=== PATIENT | female | born 1980 | race Caucasian/White ===

== ENCOUNTER → 2017-01-29 | Outpatient (CLI) | payer OTHER ==
[~2017-01-29] MED LIST: ALL DAY ALLERGY10 MG PO; DIFLUCAN100 MG PO; ENSKYCE 28 TAB1 EACH PO; FEROSUL325 MG PO; IBU800 M1 PO; LANTUS100 U/ML SC; MOTRIN800 MG PO; NOVOLOG1 UNIT/0.0 SC; OMEPRAZOLE40 MG PO; PAROXETINE HCL40 MG PO; PERCOCET 325 MG1 TA2 PO; PERCOCET 325 MG1 TA5 PO; SYNTHROID0.088 MG PO; TYLENOL500 MG PO; VENLAFAXINE HY150 M2 PO; VITAMIN D-32000 UNI1 PO; ZYRTEC10 M1 PO
[2017-01-29 15:21] LABS: BASO % 0.2 % (0.0-1.0); EOS # 0.3 10*3/uL (0.0-0.4); EOS % 2.7 % (1.0-4.0); HEMATOCRIT 38.2 % (37.0-47.0); HEMOGLOBIN 12.1 g/dl (12.0-16.0); LYMPH # 4.6 10*3/uL (1.3-4.4); MEAN CORPUSCULAR HGB 26.6 pg (27.0-31.0); MEAN CORPUSCULAR HGB CONC 31.7 g/dl (33.0-37.0); MEAN PLATELET VOLUME 9.7 fl (9.6-12.3); MONO # 0.5 10*3/uL (0.1-1.0); MONO % 4.2 % (3.0-9.0); NEUT # 6.9 10*3/uL (2.3-7.9); NEUT % 55.3 % (47.0-73.0); PLATELET COUNT AUTOMATED 323 10*3/uL (130-400); RED BLOOD COUNT 4.55 10*6/uL (4.10-5.10); RED CELL DISTRI WIDTH 13.3 % (0-14.5); WHITE BLOOD COUNT 12.5 10*3/uL (4.8-10.8)
== END | disposition home or self-care (01) ==
LOC: LAB 13:49 → US 16:00
PROVIDERS: Obstetrics & Gynecology
DX: N92.0 Excessive and frequent menstruation with regular cycle (principal); N94.6 Dysmenorrhea, unspecified; R58 Hemorrhage, not elsewhere classified

== ENCOUNTER → 2017-02-05 | Day surgery (SDC) | payer OTHER ==
[2017-01-29 14:06] VITALS: BP 134/84
[~2017-02-05] VITALS: Ht 170.1 cm; Wt 140.6 kg
--- NOTE | ~2017-02-05 | WRIGHTHP ---
[place], [place] PATIENT HISTORY AND PHYSICAL EXAM NAME: [facility]ACK [id number] UNIT #: [id number] ROOM: DOCTOR: TRACIE DE JESUS MD BIRTHDATE: [birth year] DOS: 02/05/2017 HISTORY OF PRESENT ILLNESS: The patient is a 36-year-old white female 4, para 4, AB 0, kindly referred by Dr. Carrizales from the [facility] for evaluation for worsening hypermenorrhea, lasting for 4-7 days per month. The patient's cycles seem to be reasonably regular, but the patient states that she is having increasing clotting and cramping. The patient has also made an effort in conjunction with Dr. Carrizales's therapy to utilize the control pill for about a year, but states that she has got no significant relief. She is status post tubal ligation and status post vaginal delivery x 3 with her last delivery being a for breech at term. The patient has also been offered Mirena, but not interested. We therefore reviewed the risks and benefits, indications, potential complications and alternatives of hysteroscopy, D and C and NovaSure endometrial ablation, understanding stated and consent was signed. We also ordered an ultrasound to evaluate her pelvis as a precaution due to her BMI, but this was also normal. The patient had signed her consent and has been scheduled for 02/05/2017. PAST MEDICAL HISTORY: Reveals a history of vaginal delivery, 4 pregnancies, 4 children, 3 vaginal deliveries and a . She is also status post tubal ligation. She has history of thyroid disorder, well controlled by history and a history of depression. The patient, as I said, has had a tubal ligation. SOCIAL HISTORY: She does not smoke or drink. ALLERGIES: She states an allergy to METFORMIN, i.e. a rash. MEDICATIONS: The patient does take ____not for control, but in an effort for menstrual regulation. She takes amitriptyline 10 mg daily for anxiety, Effexor 150 mg daily for anxiety, depression; Paxil 20 mg daily for anxiety and depression, Zyrtec 10 mg p.r.n. for allergies, iron therapy 325 mg daily due to the heavy bleeding and omeprazole 40 mg daily for reflux. REVIEW OF SYSTEMS: Otherwise is stable. FAMILY HISTORY: Reveals a family history of diabetes. PHYSICAL EXAMINATION: GENERAL: Reveals a pleasant white female. VITAL SIGNS: She is 5 feet and 7 inches, 316 pounds, BMI is 49.5, blood pressure 142/88. She is in no apparent distress. She has sleep apnea, oxygen status normal. HEENT AND NECK: Grossly intact. LUNGS: Grossly intact. CARDIAC: Grossly intact. BREASTS: Grossly intact. ABDOMEN: Grossly intact. EXTREMITIES: Grossly intact. NEUROLOGIC: Grossly intact. GENITOURINARY: External genitalia, vagina, cervix normal. Most recent Pap [place], [place] PATIENT HISTORY AND PHYSICAL EXAM NAME: STEFANY BLACK UNIT #: [id number] ROOM: DOCTOR: TRACIE DE JESUS MD BIRTHDATE: [birth year] negative. Uterus is anteverted and anteflexed, normal size, configuration, nontender and mobile. The adnexa negative. RECTAL: Deferred. ASSESSMENT AND PLAN: The patient with worsening hypermenorrhea with reasonably regular cycles, worsening dysmenorrhea and worsening clotting, who is status post tubal ligation and has failed other conservative therapies, who will undergo hysteroscopy, dilation and curettage and NovaSure endometrial ablation on 02/05/2017. TRACIE DE JESUS MD CM:HISPHYS:PATIENT HISTORY AND PHYSICAL EXAMINATION [id number] TRACIE DE JESUS MD 02/01/17 0634 interface
--- NOTE | ~2017-02-05 | O ---
[place], [place] OPERATIVE NOTE NAME: STEFANY BLACK UNIT #: [id number] ROOM: DOCTOR: TRACIE COREA MD BIRTHDATE: [birth year] DOS: 02/05/2017 PREOPERATIVE DIAGNOSES: Worsening hypermenorrhea, dysmenorrhea, increased clotting in a patient who had failed conservative therapy and is status post tubal ligation. POSTOPERATIVE DIAGNOSES: Worsening hypermenorrhea, dysmenorrhea, increased clotting in a patient who had failed conservative therapy and is status post tubal ligation. PROCEDURE: Hysteroscopy, D and C and NovaSure endometrial ablation. SURGEON: Dr. Tracie Corea and Dr. Carrizales. ANESTHESIA: MAC with 2% Nesacaine local anesthetic placed in a paracervical manner at 4 and 7 o'clock respectively, 5 mL each. ESTIMATED BLOOD LOSS: Minimal. REPLACEMENTS: IV fluids and Toradol. COMPLICATIONS: There were no complications. CONDITION: The patient's condition to recovery stable. OPERATIVE SUMMARY: The patient was taken to operating room and placed in supine position, administered MAC anesthesia, placed in lithotomy position where she was prepped and draped in routine manner. The cervix was grasped, paracervical block of 2% Nesacaine was placed at 4 and 7 o'clock respectively, 5 mL each and once that was placed, we then sounded the uterus to 8.5 cm. The cervix was progressively dilated, followed by placing the hysteroscope, which revealed both cornual regions and the fundus to be normal. The body of uterus was overall normal in configuration and overall appearance as well as the lower uterine segment. The hysteroscope was removed. A thorough curettage was undertaken with a curet and stone forceps and once this was completed, the NovaSure device was placed and after achieving the appropriate depth and width and noting that the cavity was intact, the NovaSure ablation was accomplished without complication. Once that was completed, the NovaSure device was removed and repeat hysteroscopy revealed an excellent global ablation and no other abnormalities. All instrumentation was removed. Good hemostasis was noted. The patient was cleaned off, taken out of lithotomy position, awakened and transferred to recovery in satisfactory condition, stable vital signs, good hemostasis and stable sponge and instrument count. [place], [place] OPERATIVE NOTE NAME: STEFANY BLACK UNIT #: [id number] ROOM: DOCTOR: TRACIE COREA MD BIRTHDATE: [birth year] TRACIE COREA MD CM:OPRECORD:OPERATIVE NOTE [id number] TRACIE COREA MD 02/05/17 1152 interface
[2017-02-05 08:20] VITALS: BP 152/78
[2017-02-05 10:23] VITALS: BP 142/82
[2017-02-05 10:37] VITALS: BP 133/74
[2017-02-05 10:57] VITALS: BP 123/78
== END | disposition home or self-care (01) ==
LOC: SDC 01-29 14:00
DX: N92.0 Excessive and frequent menstruation with regular cycle (principal); Z98.51 Tubal ligation status; F32.9 Major depressive disorder, single episode, unspecified; F41.9 Anxiety disorder, unspecified; K21.9 Gastro-esophageal reflux disease without esophagitis; Z88.8 Allergy status to other drugs, medicaments and biological substances; Z83.3 Family history of diabetes mellitus; E66.01 Morbid (severe) obesity due to excess calories; Z68.42 Body mass index [BMI] 45.0-49.9, adult; E07.89 Other specified disorders of thyroid; Z87.891 Personal history of nicotine dependence

== ENCOUNTER 2022-07-11 20:26 | Emergency (ER) | payer OTHER ==
[~2022-07-11] VITALS: Ht 167.6 cm; Wt 73.5 kg
== END 2022-07-11 23:06 | disposition home or self-care (01) ==
LOC: ED 20:26
DX: S91.114A Laceration without foreign body of right lesser toe(s) without damage to nail, initial encounter (principal); F32.A Depression, unspecified; E11.9 Type 2 diabetes mellitus without complications; Z88.5 Allergy status to narcotic agent; Z88.8 Allergy status to other drugs, medicaments and biological substances; Z98.890 Other specified postprocedural states; W26.9XXA Contact with unspecified sharp object(s), initial encounter; Y93.89 Activity, other specified; Y92.89 Other specified places as the place of occurrence of the external cause; Y99.8 Other external cause status